=== PATIENT | female | born 1945 | race Caucasian/White ===

== ENCOUNTER → 2020-09-17 | Outpatient (CLI) | payer MEDICARE ==
--- NOTE | 2020-09-17 20:21 | CT ---
EXAMINATION TYPE: CT brain wo con DATE OF EXAM: 09/17/2020 COMPARISON: None HISTORY: 74-year-old female dizziness, CVA 6 months ago TECHNIQUE: Examination was done in axial plane without intravenous contrast. Coronal and sagittal r econstructions performed. CT DLP: 1017.9 mGycm Automated exposure control for dose reduction was used. FINDINGS: There is no evidence of acute intracranial hemorrhage, acute ischemic changes, mass, mass-effect, or extra-axial fluid collection. There is no effacement of cerebral sulci or basal subarachnoid cister ns. There is no hydrocephalus. There is no midline shift. Barbour-white matter distinction is preserv ed. Some layering fluid within the maxillary sinuses. Frothy fluid posterior ethmoid [facility] ight sphenoid sinus. Orbits and globes are intact. IMPRESSION: No acute intracranial abnormality seen. Correlate for acute sinusitis involving the bilateral maxilla ry sinuses, right ethmoid air cells, and right sphenoid sinus.
== END | disposition home or self-care (01) ==
LOC: RADCTMAIN 12:52
PROVIDERS: ATTEND Internal Medicine
DX: R42 Dizziness and giddiness (principal); Z86.73 Personal history of transient ischemic attack (TIA), and cerebral infarction without residual deficits
CPT/HCPCS: 70450

== ENCOUNTER → 2020-12-06 | Outpatient (CLI) | payer MEDICARE ==
--- NOTE | 2020-12-06 14:37 | BD ---
EXAMINATION TYPE: Axial Bone Density DATE OF EXAM: 12/06/2020 COMPARISON: NONE CLINICAL HISTORY: 75 YR OLD FEMALE.....ICD-10 CODE: Z78.0 POST MENOPAUSAL Height: 60.3 Weight: 170 FRAX RISK QUESTIONS: Glucocorticoids (More than 3mos): YES (Ex: prednisone, prednisolone, methylprednisolone, dexamethasone, and hydrocortisone). RISK FACTORS HISTORY OF: Postmenopausal woman: YES, AT ABOUT 54 YRS OLD Take estrogen and/or progesterone medications: YES, IN PAST FOR ABOUT 5 YRS Hyperparathyroidism: NO Adrenal Insufficiency: NO MEDICATIONS: Prednisone or other steroids: YES, FOR ASTHMA, FOR ABOUT 10 YRS Additional Medications: BP MEDS, REFLUX MEDS, STATIN FOR CHOLESTEROL, VIT D Additional History: HYPERTENSION, CHOLESTEROL AND REFLUX EXAM MEASUREMENTS: Bone mineral densitometry was performed using the (In)Touch Network System. Bone mineral density as measured about the Lumbar spine is: ----- L1-L4(G/cm2): 1.497 T Score Values are as follows: ----- L1: 1.9 ----- L2: 1.7 ----- L3: 2.3 ----- L4: 3.9 ----- L1-L4: 2.6 Bone mineral density FIRST DEXA STUDY AT [facility] Bone mineral density about the R hip (g/cm2): 1.169 Bone mineral density about the L hip (g/cm2): 1.092 T Score values are as follows: -----R Neck: -0.2 -----L Neck: -0.4 -----R Total: 1.3 -----L Total: 0.7 Bone mineral density FIRST BONE DENSITY AT [facility] FRAX%s: THERE IS A 12.1% CHANCE FOR A MAJOR OSTEOPOROTIC FX AND A 1.3% FOR HIP......PROBABILITY F OR FX IN 10 YRS TIME IMPRESSION: No evidence for osteoporosis or osteopenia. NOTE: T-SCORE=SD OF THE YOUNG ADULT MEAN.
--- NOTE | 2020-12-07 13:57 | MM ---
Reason for exam: screening (asymptomatic). History: Patient is postmenopausal and is nulliparous. Physical Findings: A clinical breast exam by your physician is recommended on an annual basis and results should be correlated with mammographic findings. MG 3D Screening Mammo W/Cad Bilateral CC and MLO view(s) were taken. No prior studies available for comparison. There are scattered fibroglandular densities. Bilateral nodularity in the outer aspects of the breast. These are suspected to represent intramammary lymph nodes. 6 month follow up recommended. ASSESSMENT: Probably benign, BI-RAD 3 RECOMMENDATION: Follow-up diagnostic mammogram of both breasts in 6 months.
== END | disposition home or self-care (01) ==
LOC: RADMAMWWP 12:38
PROVIDERS: ATTEND Internal Medicine
DX: Z12.31 Encounter for screening mammogram for malignant neoplasm of breast (principal); Z78.0 Asymptomatic menopausal state; Z79.52 Long term (current) use of systemic steroids; I10 Essential (primary) hypertension
CPT/HCPCS: 77063; 77067; 77080

== ENCOUNTER → 2021-06-08 | Outpatient (CLI) | payer MEDICARE ==
--- NOTE | 2021-06-08 13:56 | MM ---
Reason for exam: follow-up at short interval from prior study. Last mammogram was performed 6 months ago. History: Patient is postmenopausal and is nulliparous. Physical Findings: A clinical breast exam by your physician is recommended on an annual basis and results should be correlated with mammographic findings. MG 3D Diag Mammo W/Cad HERB Bilateral CC and MLO view(s) were taken. Prior study comparison: December 06, 2020, bilateral MG 3d screening mammo w/cad. The breast tissue is heterogeneously dense. This may lower the sensitivity of mammography. There are benign appearing round calcifications bilaterally. There is chronic nodularity bilaterally, stable, outer aspect. There is no discrete abnormality. Results were given to the patient verbally at the time of the exam. ASSESSMENT: Benign, BI-RAD 2 RECOMMENDATION: Routine screening mammogram of both breasts in 1 year.
== END | disposition home or self-care (01) ==
LOC: RADMAMWWP 12:58
PROVIDERS: ATTEND Internal Medicine
DX: R92.1 Mammographic calcification found on diagnostic imaging of breast (principal); Z78.0 Asymptomatic menopausal state
CPT/HCPCS: 77066; G0279; 77062

== ENCOUNTER → 2021-06-20 | Outpatient (CLI) | payer MEDICARE ==
[~2021-06-20] MED LIST: REGADENOSON 0.4 MG/5 ML SYRINGE IV PRN
--- NOTE | 2021-06-20 11:19 | CA ---
Lexiscan Nuclear Stress Test Report Name: Amanda Meade Exam Date: 06/20/2021 10:26 Exam Location: [facility] Ht (in): 63 Wt (lb): 174 BSA: 1.82 Ordering Phys: Andrés Corea MD Referring Phys: Corea Technologist: [place] Age: 75 Gender: F : 1945 Procedure CPT: Indications: R07.9 CHEST PAIN ICD-10 Codes: Patient History: Chest pain, Short of breath, Palpitations, hypertension, family history of heart disease, Medications: Losartan, Metroprolol, panterrazole, montelukast,Storvastatin, baby aspirin Meds past 24 hrs: Pretest Chest Pain: STRESS TEST Lexiscan Protocol Exercise Duration (min:sec): 02:[address] Depressions (mm): Angina Score: Gunn Score: Resting HR (bpm): 68 Peak HR (bpm): 93 Resting BP (mmHg): 170 / 97 Peak BP (mmHg): 204 / 93 MPHR: 146 Target HR: 124 % MPHR: 64 METS: 1.0 Total Dose: Peak Dose: Atropine: Double Product: 05187 BP Response: Stress Termination: Stress Symptoms: Chest pressure and shortness of breath Stress Summary: ECG ANALYSIS Resting ECG: Stress ECG: CONCLUSIONS Baseline EKG shows normal sinus rhythm normal axis normal intervals. Patient was given intravenous Lexiscan as a protocol. There was [address] segment depression noted in inferolateral leads. Abnormal stress test by EKG criteria Cardiolite portion of the stress test will be reported separately Dr. Feng Haynes MD (Electronically Signed) Final Date: 20 Jun 2021 11:18
--- NOTE | 2021-06-20 15:24 | NM ---
EXAMINATION TYPE: NM stress lexiscan cardiolite DATE OF EXAM: 06/20/2021 COMPARISON: NONE HISTORY: History of hypertension, prior stroke, family history of heart attack, asthma, and prior str chip presents with chest pain. TECHNIQUE: After the intravenous administration of 9.8 mCi Tc 99m Sestamibi - Cardiolite resting SPE CT images acquired 45 minutes post injection. The patient received 0.4mg Lexiscan, 25.5 mCi Tc 99m Sestamibi - Stress images obtained [address] injection FINDINGS: Review of stress and rest SPECT images demonstrates poor uptake involving the anterolateral left vent ricular wall on stress images which shows improved uptake on rest images particularly on the short ax is and horizontal long axis views suspicious for acute infarct. Gated analysis shows an estimated le ft ventricular ejection fraction of 69 %. IMPRESSION: Findings suspicious for acute infarct anterolateral left ventricular wall. Perfect serve messaging used at time of dictation to make ordering physician aware.
== END | disposition home or self-care (01) ==
LOC: RADNMMAIN 08:48
PROVIDERS: ATTEND Internal Medicine
DX: R07.9 Chest pain, unspecified (principal); I10 Essential (primary) hypertension; Z82.49 Family history of ischemic heart disease and other diseases of the circulatory system; Z86.73 Personal history of transient ischemic attack (TIA), and cerebral infarction without residual deficits
CPT/HCPCS: 93017; 78452; A9500; J2785

== ENCOUNTER → 2021-06-20 | Outpatient (CLI) | payer MEDICARE | END | disposition home or self-care (01) | LOC: LABWHC1 12:01 | PROVIDERS: ATTEND Nurse Practitioner | DX: Z53.9 Procedure and treatment not carried out, unspecified reason (principal) ==

== ENCOUNTER → 2021-06-23 | Day surgery (SDC) | payer MEDICARE ==
[2021-06-22 11:07] VITALS: BMI 30.2
[~2021-06-23] MED LIST changes: +ACETAMINOPHEN TAB 325 MG TAB ONE; +ALPRAZolam 0.25 MG TAB PO PRN; +ALPRAZolam 0.5 MG TAB PO PRN; +ASPIRIN 325 MG TAB PO ONE; +ATORVASTATIN 80 MG TAB PO ONE; +HEPARIN SODIUM 1,000 UN/ML (10ML VL) IV ONE; +HEPARIN SODIUM,PORCINE 10,000 UNIT in SODIUM CHLORIDE 0.9% 1,000 ML IRRIGATION PRN; +HEPARIN SODIUM,PORCINE 2,500 UNIT in SODIUM CHLORIDE 0.9% 250 ML IRRIGATION PRN; +IOPAMIDOL-370 125ML BTL INJ ONE; +LIDOCAINE 1% PF 10 MG/ML (5 ML AMP) SQ ONE; +MIDAZOLAM 2 MG/2 ML VIAL IV ONE; +NITROGLYCERIN SL TABS 0.4 MG TAB SUBLINGUAL PRN; -REGADENOSON 0.4 MG/5 ML SYRINGE IV PRN; +RX INFO: IV CONTRAST WAS GIVEN 1 EACH MISC MISCELLANE PRN; +SODIUM CHLORIDE 0.9% 1,000 ML IV SCH; +SODIUM CHLORIDE 0.9% 1,000 ML in EMPTY BAG 1 BAG IV SCH; +VERAPAMIL 2.5 MG/ML 2 ML AMP ONE; +VERAPAMIL SYRINGE (5 MG/10 ML) INTRAARTER ONE; +fentaNYL (PF) 50 MCG/ML 2 ML AMP IV ONE; +fentaNYL (PF) 50 MCG/ML 2 ML AMP ONE
[2021-06-23 09:19] VITALS: TEMP 97.6
[2021-06-23 09:41] LABS: Basophils # (A) 0.1 k/uL (0-0.2); Basophils % (A) 1 %; Eosinophils # (A) 0.3 k/uL (0-0.7); Eosinophils % (A) 4 %; HCT 36.9 % (34.0-46.0); HGB 12.1 gm/dL (11.4-16.0); Lymphocytes # (A) 1.6 k/uL (1.0-4.8); Lymphocytes % (A) 20 %; MCH 28.5 pg (25.0-35.0); MCHC 32.9 g/dL (31.0-37.0); MCV 86.8 fL (80.0-100.0); Monocytes # (A) 0.5 k/uL (0-1.0); Monocytes % (A) 7 %; Neutrophils # (A) 5.3 k/uL (1.3-7.7); Neutrophils % (A) 67 %; Platelet Count 281 k/uL (150-450); RBC 4.25 m/uL (3.80-5.40); RDW 13.9 % (11.5-15.5)
[2021-06-23 09:45] LABS: Calcium 9.1 mg/dL (8.4-10.2); Potassium 4.1 mmol/L (3.5-5.1)
--- NOTE | 2021-06-23 11:30 | CC ---
CARDIAC CATHETERIZATION REPORT INDICATION: Shortness of breath with abnormal stress test showing ischemia involving anterolateral wall with normal LV function. PROCEDURE NOTE: After obtaining informed consent, left heart catheterization and coronary angiogram were performed via the right radial artery using 3.5 sized right and left Jojo catheters. Left ventricular pressures were obtained using a right Jojo catheter. The patient tolerated the procedure well without any obvious immediate complications. This is moderate conscious sedation. Total sedation time was 20 minutes. The patient was given 5 mg of verapamil and 5000 units of intravenous heparin as per protocol. DESCRIPTION OF PROCEDURE: Using a micropuncture needle with the Seldinger technique, right radial artery access was obtained and under fluoroscopic guidance catheters and wires were manipulated into the ascending aorta where they were exchanged. The patient tolerated the procedure well without any obvious immediate complications. A TR band was applied as per protocol for hemostasis. FINDINGS: HEMODYNAMICS: Left ventricular end-diastolic pressure is 13 mm. There is no significant gradient across the aortic valve. LEFT VENTRICULOGRAM: Not performed. ANGIOGRAPHIC DATA: RIGHT CORONARY ARTERY: The right coronary artery appears calcified. It is totally occluded in its mid portion with right to right and [id number] collaterals to the distal RCA. LEFT MAIN CORONARY ARTERY is a normal-sized vessel and is free of stenosis. Divides into left anterior descending coronary artery and circumflex coronary artery. LEFT ANTERIOR DESCENDING CORONARY ARTERY: LAD appears calcified and shows mild atherosclerotic plaque in its mid portion. There is no significant stenosis noted. CIRCUMFLEX CORONARY ARTERY: Circumflex coronary artery and its branches are free of significant stenosis. It is unclear if the distal AV groove circ is totally occluded or it is the natural appearance of the distal circ. CONCLUSION: Chronic total occlusion of the right coronary artery with right to right and left-to- right collaterals to the right coronary artery. We will manage the patient with optimal medical therapy. She states that her shortness of breath has improved ever since I started her on . Continue the aspirin, beta blockers and statins that she is currently on and if she continues to have symptoms, consider angioplasty of the chronic totally occluded right coronary artery. MMODL / IJN: [id number] /
--- NOTE | 2021-06-23 11:30 | LTR ---
DATE OF SERVICE: 06/23/2021 Dear Andrés: I performed cardiac catheterization on Amanda Meade. A detailed catheterization note is enclosed for your records. In brief, the cardiac catheterization reveals a chronically occluded right coronary artery with right to right and [id number] collaterals. The plan at this stage is to treat her with optimal medical therapy and see how symptoms evolve and if necessary, consider angioplasty of the chronically occluded right coronary artery. Thank you for giving us the privilege to participate in this pleasant lady. Sincerely, PAULINA / IANN: [id number] /
[2021-06-23 11:36] VITALS: RESP 16
[2021-06-23 11:40] VITALS: BP 177/77; PULSE 69
== END ==
LOC: CATHCVL 08:55
PROVIDERS: ATTEND Internal Medicine Cardiovascular Disease
DX: I25.10 Atherosclerotic heart disease of native coronary artery without angina pectoris (principal); I25.82 Chronic total occlusion of coronary artery; I10 Essential (primary) hypertension; E78.2 Mixed hyperlipidemia; Z86.73 Personal history of transient ischemic attack (TIA), and cerebral infarction without residual deficits; Z79.82 Long term (current) use of aspirin; Z79.899 Other long term (current) drug therapy; Z82.49 Family history of ischemic heart disease and other diseases of the circulatory system
CPT/HCPCS: 93458; 80048; 85025; C1894; J2250; J2001; J3010; J1644; Q9967

== ENCOUNTER 2021-06-25 22:28 | Inpatient (IN) | payer MEDICARE ==
--- NOTE | 2021-06-26 00:41 | ED ---
Chest Pain HPI - General Chief Complaint: Chest Pain Stated Complaint: palpitations Time Seen by Provider: 06/25/21 23:45 Source: patient, EMS Mode of arrival: EMS Limitations: no limitations - History of Present Illness Initial Comments: This patient is a 75-year-old woman who presents to have evaluation for palpitations and chest pain. Patient states that approximately 9 PM tonight she was watching television when she noticed that all of a sudden her heart was beating rapidly, pounding in her chest. She states that there may have just been the mildest of chest pain associated area she did not have other associated symptoms, no dyspnea, diaphoresis, nausea or vomiting. No lightheadedness or syncope. Patient tried taking nitroglycerin for this without much change. When the heart rate continued to be elevated EMS was called. The patient states that she feels like all of the symptoms have resolved by now. She does feel a little fatigued but otherwise nearly back to normal. The patient states that she did have a nuclear medicine stress test last week and then this was followed by heart catheterization on . She was told the results were not showing acute obstruction. MD Complaint: chest pain, other -: hour(s) Pain Location: left chest Pain Radiation: none Severity: mild Quality: dull Consistency: now resolved Improves With: nothing Worsens With: nothing Treatments Prior to Arrival: nitroglycerin - Related Data Home Medications Medication Instructions Recorded Confirmed Albuterol Inhaler [Ventolin Hfa 2 puff INHALATION RT-QID PRN 06/22/21 06/26/21 Inhaler] Aspirin 81 mg PO DAILY 06/22/21 06/26/21 Atorvastatin [Lipitor] 40 mg PO DAILY 06/22/21 06/26/21 Losartan Potassium [Cozaar] 50 mg PO BID 06/22/21 06/26/21 Metoprolol Tartrate [Lopressor] 75 mg PO BID 06/22/21 06/26/21 Montelukast [Singulair] 10 mg PO HS 06/22/21 06/26/21 Pantoprazole [Protonix] 40 mg PO DAILY 06/22/21 06/26/21 Previous Rx's Medication Instructions Recorded Isosorbide Mononitrate ER [Imdur] 30 mg PO DAILY #90 tab 06/20/21 Nitroglycerin Sl Tabs [Nitrostat] 0.4 mg SUBLINGUAL Q5M PRN #100 tab 06/20/21 Clopidogrel [Plavix] 75 mg PO DAILY 30 Days #30 tab 06/29/21 amLODIPine [Norvasc] 10 mg PO DAILY 30 Days #30 tab 06/29/21 Allergies Allergy/AdvReac Type Severity Reaction Status Date / Time No Known Allergies Allergy Verified 06/26/21 12:45 Review of Systems ROS Statement: Those systems with pertinent positive or pertinent negative responses have been documented in the HPI. ROS Other: All systems not noted in ROS Statement are negative. Constitutional: Denies: fever, chills, weakness Respiratory: Denies: cough, dyspnea Cardiovascular: Reports: as per HPI, chest pain, palpitations. Denies: orthopnea, edema, syncope Gastrointestinal: Denies: abdominal pain, nausea, vomiting, diarrhea Genitourinary: Denies: dysuria, hematuria Musculoskeletal: Denies: back pain Skin: Denies: rash Neurological: Denies: headache, weakness Psychiatric: Reports: anxiety EKG Findings - EKG Results: EKG: interpreted by ERMD, normal axis, normal QRS EKG shows: tachycardia (Rate 113 bpm) - Blocks, [place], Hypertrophy, ST Abn: Repolarization changes or abnormalities: ST or T wave suggestive of ischemia (Possible lateral ischemia.) Past Medical History Past Medical History: Asthma, Chest Pain / Angina, CVA/TIA, GERD/Reflux, Hyperlipidemia, Hypertension Additional Past Medical History / Comment(s): recent stress test, SOB w/exertion for about a month, fatigue, severe stroke Mar. 2020-went to rehab after to learn to walk again but good now History of Any Multi-Drug Resistant Organisms: None Reported Additional Past Surgical History / Comment(s): D & C's Past Anesthesia/Blood Transfusion Reactions: No Reported Reaction Past Psychological History: Anxiety Smoking Status: Never smoker - Past Family History Brother(s) Family Medical History: Coronary Artery Disease (CAD), Myocardial Infarction ( CT) General Exam Limitations: no limitations General appearance: alert, in no apparent distress Head exam: Present: atraumatic, normocephalic Eye exam: Present: normal appearance. Absent: scleral icterus, conjunctival injection Neck exam: Present: normal inspection Respiratory exam: Present: normal lung sounds bilaterally. Absent: respiratory distress, wheezes, rales, rhonchi, stridor Cardiovascular Exam: Present: regular rate, normal rhythm, normal heart sounds. Absent: systolic murmur, diastolic murmur, rubs, gallop GI/Abdominal exam: Present: soft. Absent: distended, tenderness, guarding, rebound, rigid, mass Extremities exam: Present: normal inspection, normal capillary refill. Absent: pedal edema, calf tenderness Back exam: Present: normal inspection. Absent: CVA tenderness (R), CVA tenderness (L) Neurological exam: Present: alert Skin exam: Present: warm, dry, intact, normal color. Absent: rash Course Vital Signs 06/25/21 06/25/21 06/26/21 22:52 23:59 01:36 Temperature 98.1 F Pulse Rate 111 H 75 72 Pulse Rate [ Pulse Oximetery ] Respiratory 20 18 18 Rate Blood Pressure 201/105 164/89 174/99 Blood Pressure [Right Arm] O2 Sat by Pulse 98 97 95 Oximetry 06/26/21 06/26/21 06/26/21 02:33 03:34 04:00 Temperature 98.2 F Pulse Rate 75 73 Pulse Rate [ 75 Pulse Oximetery ] Respiratory 18 16 18 Rate Blood Pressure 191/86 166/76 Blood Pressure 203/86 [Right Arm] O2 Sat by Pulse 95 95 94 L Oximetry Disposition Clinical Impression: NSTEMI (non-ST elevated myocardial infarction), Chest pain Disposition: ADMITTED IP TO THIS HOSP Condition: Fair Is patient prescribed a controlled substance at d/c from ED?: No
[2021-06-26 00:46] LABS: Basophils # (A) 0.1 k/uL (0-0.2); Basophils % (A) 1 %; Eosinophils # (A) 0.4 k/uL (0-0.7); Eosinophils % (A) 4 %; HCT 35.7 % (34.0-46.0); HGB 11.6 gm/dL (11.4-16.0); Lymphocytes # (A) 1.7 k/uL (1.0-4.8); Lymphocytes % (A) 18 %; MCH 28.5 pg (25.0-35.0); MCHC 32.6 g/dL (31.0-37.0); MCV 87.5 fL (80.0-100.0); Mean Platelet Volume 8.4; Monocytes # (A) 0.7 k/uL (0-1.0); Monocytes % (A) 7 %; Neutrophils # (A) 6.5 k/uL (1.3-7.7); Neutrophils % (A) 69 %; Platelet Count 243 k/uL (150-450); RBC 4.08 m/uL (3.80-5.40); RDW 13.8 % (11.5-15.5); WBC 9.5 k/uL (3.8-10.6)
[2021-06-26 01:03] LABS: Albumin 3.6 g/dL (3.5-5.0); Calcium 8.7 mg/dL (8.4-10.2); Magnesium 1.8 mg/dL (1.6-2.3); Total Bilirubin 0.6 mg/dL (0.2-1.3); Total Protein 6.4 g/dL (6.3-8.2)
--- NOTE | 2021-06-26 01:14 | XR ---
EXAMINATION TYPE: XR chest 1V portable DATE OF EXAM: 06/26/2021 COMPARISON: NONE HISTORY: Palpitations TECHNIQUE: Single view FINDINGS: Single view Heart is normal. Lungs are clear of infiltrate. There are no hilar masses. There is no pleural effusi on. There are chest leads. IMPRESSION: No active cardiopulmonary disease.
[2021-06-26 01:23] LABS: INR 0.9 (<1.2); Prothrombin Time 10.4 sec (9.0-12.0)
[2021-06-26 01:46] LABS: Partial Thromboplastin Time 21.8 sec (22.0-30.0)
[2021-06-26] MEDS ORDERED: NITROGLYCERIN SL TABS 0.4 MG TAB SUBLINGUAL PRN (02:48)
[2021-06-26] MEDS ORDERED: MORPHINE SULFATE 2 MG/ML SYRINGE IVP PRN (02:48)
--- NOTE | 2021-06-26 03:48 | P.HPIM ---
History of Present Illness H&P Date: 06/26/21 Chief Complaint: palpitations 75 year old female with CAD, hypertension patient presented by EMS when she experienced palpitations and chest discomfort that happened suddenly while she was resting and getting ready to go to sleep. she recently had a left heart cath that showed total occlusion of coronary arteries no stents were deployed and recommendations were to optimize medical treatment . she denies any history of afib or heart racing. she drinks one coke a day for a caffeine source. no recent changes inher meds, and claims she is compliant with her meds currently she feels comfortable no ongoing chest discomfort or palpitations at this time blood work showed slightly elevated trops otherwise unremarkable Review of Systems Pertinent positives as noted in HPI. All other systems were reviewed and are negative Past Medical History Past Medical History: Asthma, Chest Pain / Angina, CVA/TIA, GERD/Reflux, Hyperlipidemia, Hypertension Additional Past Medical History / Comment(s): recent stress test, SOB w/exertion for about a month, fatigue, severe stroke Fe. 2020-went to rehab after to learn to walk again but good now History of Any Multi-Drug Resistant Organisms: None Reported Additional Past Surgical History / Comment(s): D & C's Past Anesthesia/Blood Transfusion Reactions: No Reported Reaction Past Psychological History: Anxiety Smoking Status: Never smoker - Past Family History Brother(s) Family Medical History: Coronary Artery Disease (CAD), Myocardial Infarction (ME) Medications and Allergies Home Medications Medication Instructions Recorded Confirmed Type Isosorbide Mononitrate ER [Imdur] 30 mg PO DAILY #90 tab 06/20/21 06/23/21 Rx Nitroglycerin Sl Tabs [Nitrostat] 0.4 mg SUBLINGUAL Q5M PRN #100 tab 06/20/21 06/23/21 Rx Albuterol Inhaler [Ventolin Hfa 2 puff INHALATION RT-QID PRN 06/22/21 06/23/21 History Inhaler] Aspirin 81 mg PO DAILY 06/22/21 06/23/21 History Atorvastatin [Lipitor] 40 mg PO DAILY 06/22/21 06/23/21 History Losartan Potassium [Cozaar] 50 mg PO BID 06/22/21 06/23/21 History Metoprolol Tartrate [Lopressor] 75 mg PO BID 05/11/22 05/12/22 History Montelukast [Singulair] 10 mg PO HS 06/22/21 06/23/21 History Pantoprazole [Protonix] 40 mg PO DAILY 06/22/21 06/23/21 History Allergies Allergy/AdvReac Type Severity Reaction Status Date / Time No Known Allergies Allergy Unverified 06/23/21 09:07 Physical Exam Vitals: Vital Signs Temp Pulse Resp BP Pulse Ox 06/26/21 02:33 75 18 191/86 95 06/26/21 01:36 72 18 174/99 95 06/25/21 23:59 75 18 164/89 97 06/25/21 22:52 98.1 F 111 H 20 201/105 98 Intake and Output 06/25/21 06/25/21 06/26/21 14:59 22:59 06:59 Other: Weight 78.471 kg Constitutional: No acute distress, conversant, pleasant Eyes: Anicteric sclerae, moist conjunctiva, Pupils equal round reactive to light ENMT: NC/AT Oropharynx clear, no erythema, or exudates Neck: Supple, FROM, no masses, or JVD No carotid bruits No thyromegaly Lungs: Clear to auscultation Clear to percussion Normal respiratory effort, no accessory muscle use Cardiovascular: Heart regular in rate and rhythm, No murmurs, gallops, or rubs No peripheral edema Abdominal: Soft Nontender, no guarding, rebound or rigidity Abdomen moving with respiration Normoactive bowel sounds No hepatomegaly, No splenomegaly No palpable mass No abdominal wall hernia noted Skin: Normal temperature, tone, texture, turgor No induration No subcutaneous nodules No rash, lesions No ulcers Extremities: No digital cyanosis No clubbing Pedal pulses intact and symmetrical Radial pulses intact and symmetrical No calf tenderness Psychiatric: Alert and oriented to person, place and time Appropriate affect fair judgement Neuro Muscles Strength 4/5 in all 4 extremities Sensation to light touch grossly present throughout Cranial nerves II-XII grossly intact No focal sensory deficits Lymphatics: no palpable cervical or supraclavicular , or inguinal lymph nodes Results CBC & Chem 7: 06/26/21 00:37 06/26/21 00:37 Labs: Abnormal Lab Results - Last 24 Hours (Table) 06/26/21 06/26/21 06/26/21 Range/Units 00:37 00:37 00:37 APTT 21.8 L (22.0-30.0) sec Chloride 108 H (98-107) mmol/L BUN 21 H (7-17) mg/dL Glucose 113 H (74-99) mg/dL Troponin I 0.044 H* (0.000-0.034) ng/mL Assessment and Plan Assessment: atypical chest pain , palpitations recent left heart cath with RCA total occlusion and patent collaterals , no stenosis in circumflex or left main or left main, mild disease LAD trend trops cardiac monito resume cardiac meds cardiology consult ASA, statin slightly elevated trops possibly 2/2 demand ischemia secondary to earlier tachycardia chronic conditions hypertension hyperlipidemia resume home meds full code DVT PPX hepairn sc tid anticipated length of stay < 2 midnights
[2021-06-26] MEDS: METOPROLOL TARTRATE 25 MG TAB PO SCH ×2 (04:17→20:49)
[2021-06-26] MEDS: LOSARTAN 50 MG TAB PO SCH ×2 (04:17→20:49)
[2021-06-26] MEDS ORDERED: HEPARIN SODIUM,PORCINE/PF 5,000 UNIT/0.5 ML SYRINGE SQ SCH (08:00)
[2021-06-26] MEDS: PANTOPRAZOLE 40 MG TABLET PO SCH (08:29)
[2021-06-26] MEDS: ATORVASTATIN 40 MG TAB PO SCH (08:29)
--- NOTE | 2021-06-26 14:23 | P.PN ---
Subjective Progress Note Date: 06/26/21 Principal diagnosis: Palpitations Patient was seen and examined. No acute events overnight. Patient reports complete resolution of her symptoms. No more palpitations. No more chest pain. Feels at baseline. General: [non toxic], [no distress], [appears at stated age] Derm: [warm], [dry] Head: [atraumatic], [normocephalic], [symmetric] Eyes: [EOMI], [no lid lag], [anicteric sclera] Mouth: [no lip lesion], [mucus membranes moist] Cardiovascular: [S1S2 reg], [no murmur], [positive DP pulse bilateral] Lungs: [CTA bilateral], [no rhonchi, no rales] , [no accessory muscle use] Abdominal: [soft], [ nontender to palpation], [no guarding], [no appreciable organomegaly] Ext: [no gross muscle atrophy], [no edema], [no contractures] Neuro: [no focal neuro deficits] Psych: [Alert], [oriented], [appropriate affect] Assessment and Plan #Elevated troponins with atypical chest pain with history of CAD #Palpitations #Elevated BUN #Obesity Chronic conditions: Hypertension, dyslipidemia, GERD Patient troponins were trended at 0.044, 0.147, 0.201 with EKG showing sinus tachycardia. Recent cardiac cath done in 06/2021 shows chronic total occlusion of the RCA with collaterals. Stress done in 06/2021 shows EF of 69%. Troponin will be repeated tomorrow morning. Echocardiogram has been ordered. Telemetry monitoring will be ordered. Cardiology has been consulted for further management of this patient. TSH will be ordered with regard to her palpitations. Patient has been encouraged hydration by mouth. BMP will be repeated tomorrow morning. Patient would benefit from a structured weight loss program. DVT prophylaxis: [Heparin] Discussed with: [Patient] Anticipated discharge: [1-2 days] Anticipated discharge place: [Home] A total of [25] minutes was spent on the care of this complex patient more than 50% of the time was spent in counseling and care coordination. Plans for Echocardiogram and repeat Troponin. Unfortunately, Echo is not available today. Anticipate DC home tomorrow. Objective - Vital Signs Vital signs: Vital Signs Temp 98.3 F 06/26/21 11:48 Pulse 71 06/26/21 11:48 Resp 20 06/26/21 11:48 BP 189/86 06/26/21 11:48 Pulse Ox 90 L 06/26/21 11:48 Intake & Output 06/25/21 06/26/21 06/26/21 18:59 06:59 18:59 Intake Total 485 Output Total 300 Balance 185 Weight 78.471 kg Intake: Oral 485 Output: Urine 300 Other: Voiding Method Toilet - Labs CBC & Chem 7: 06/26/21 00:37 06/26/21 00:37 Labs: Abnormal Lab Results - Last 24 Hours (Table) 06/26/21 06/26/21 06/26/21 Range/Units 00:37 00:37 00:37 APTT 21.8 L (22.0-30.0) sec Chloride 108 H (98-107) mmol/L BUN 21 H (7-17) mg/dL Glucose 113 H (74-99) mg/dL Troponin I 0.044 H* (0.000-0.034) ng/mL 06/26/21 06/26/21 Range/Units 03:11 06:27 APTT (22.0-30.0) sec Chloride (98-107) mmol/L BUN (7-17) mg/dL Glucose (74-99) mg/dL Troponin I 0.147 H* 0.201 H* (0.000-0.034) ng/mL
[2021-06-26] MEDS ORDERED: HEPARIN SODIUM 1,000 UN/ML (10ML VL) IV PRN (15:10)
[2021-06-26] MEDS ORDERED: HEPARIN SODIUM 1,000 UN/ML (10ML VL) IV ONE (15:10)
--- NOTE | 2021-06-26 15:26 | P.CRDCN ---
History of Present Illness History of present illness: HISTORY OF PRESENTING ILLNESS Patient is pleasant 75-year-old female with history of family history CAD, hypertension, asthma, GERD, hyperlipidemia, CAD with CT of the RCA who presents secondary to chest pain. Patient follows with Dr. Haynes. She has had recent workup with a Lexiscan stress test showing anterolateral ischemia and therefore heart catheterization was performed which showed a CT of the RCA with [id number] collaterals without any significant LAD disease. She therefore was attempted to be treated medically. She admits her blood pressure has been more elevated the last few weeks. Normally in the 140s to 150s however has been up in the 180s. She states she started feeling chest pressure sensation and like her heart was beating out of her chest. She denies any actual palpitations or lightheadedness. Episode lasted for 15-20 minutes and she take nitroglycerin and called EMS. By the time EMS resented she is feeling somewhat better. On presentation blood pressure noted to be very elevated 201/105. She admits she was previously on a diuretic however felt to cause some kidney damage and therefore this was discontinued. Since being in the hospital she denies any further chest pain or pressure. EKG shows normal sinus rhythm, normal axis, ST depressions in the lateral and inferior leads. Troponin 0.04, 0.14, 0.2. Heart catheterization 06/23/2021 showed 100% sure RCA LICENSED PSYCHIATRIC TECHNICIAN with [id number] collaterals, mild disease of the LAD and circumflex with what appears to be a distal AV groove circumflex subtotal occlusion of a small vessel. Therefore she was treated medically. REVIEW OF SYSTEMS At the time of my exam: CONSTITUTIONAL: Denies fever or chills. CARDIOVASCULAR: +chest pain, +shortness of breath, no orthopnea, PND or palpitations. RESPIRATORY: Denies cough. GASTROINTESTINAL: Denies abdominal pain, diarrhea, constipation, nausea or vomiting. MUSCULOSKELETAL: Denies myalgias. NEUROLOGIC: Denies numbness, tingling or weakness. ENDOCRINE: Denies fatigue, weight change, polydipsia or polyurina. GENITOURINARY: Denies burning, hematuria or urgency with micturation. HEMATOLOGIC: Denies history of anemia or bleeding. PHYSICAL EXAMINATION Vital signs reviewed. CONSTITUTIONAL: No apparent distress. HEENT: Head is normocephalic. Pupils are equal, round. Sclerae anicteric. Mucous membranes of the mouth are moist. No JVD. No carotid bruit. CHEST EXAMINATION: Lungs are clear to auscultation. No chest wall tenderness is noted on palpation or with deep breathing. HEART EXAMINATION: Regular rate and rhythm. S1, S2 heard. No murmurs, gallops or rub. ABDOMEN: Soft, nontender. Positive bowel sounds. EXTREMITIES: 2+ peripheral pulses, no lower extremity edema and no calf tenderness. NEUROLOGIC EXAMINATION: Patient is awake, alert and oriented x3. ASSESSMENT 1. Non-STEMI may be type II mechanism from uncontrolled hypertension or po ssible arrhythmia that resolved by time EMS arrived however chest pain improving with nitro. 2. Coronary artery disease with 100% RCA stenosis and subtotal occluded distal AV circumflex 3. Hypertension uncontrolled 4. Hyperlipidemia 5. Chronic kidney disease PLAN Patient with 15-20 minutes of chest pain and feeling her heart "beating hard "in her chest. This may correlate with an arrhythmia however more concerning for angina with elevated troponins with a rise in troponins. She does have RCA LICENSED PSYCHIATRIC TECHNICIAN and discussed given symptoms as well as abnormal troponins would recommend intervention. Patient would like to think about it. Continue heparin drip for 24 hours. If patient willing proceed with repeat heart catheterization and LICENSED PSYCHIATRIC TECHNICIAN procedure of RCA. Add amlodipine for better blood pressure control. If still inadequate likely add diuretic for improved blood pressure control. Past Medical History Past Medical History: Asthma, Chest Pain / Angina, CVA/TIA, GERD/Reflux, Hyperlipidemia, Hypertension Additional Past Medical History / Comment(s): recent stress test and cath, SOB w/exertion for about a month, fatigue, severe stroke 2020-went to rehab after to learn to walk again but good now History of Any Multi-Drug Resistant Organisms: None Reported Additional Past Surgical History / Comment(s): D & C's Past Anesthesia/Blood Transfusion Reactions: No Reported Reaction Past Psychological History: Anxiety Additional Psychological History / Comment(s): related to procedure Smoking Status: Never smoker Past Alcohol Use History: Occasional Past Drug Use History: None Reported - Past Family History Brother(s) Family Medical History: Coronary Artery Disease (CAD), Myocardial Infarction ([place]) Medications and Allergies Home Medications Medication Instructions Recorded Confirmed Type Isosorbide Mononitrate ER [Imdur] 30 mg PO DAILY #90 tab 06/20/21 06/26/21 Rx Nitroglycerin Sl Tabs [Nitrostat] 0.4 mg SUBLINGUAL Q5M PRN #100 tab 06/20/21 06/26/21 Rx Albuterol Inhaler [Ventolin Hfa 2 puff INHALATION RT-QID PRN 06/22/21 06/26/21 History Inhaler] Aspirin 81 mg PO DAILY 06/22/21 06/26/21 History Atorvastatin [Lipitor] 40 mg PO DAILY 06/22/21 06/26/21 History Losartan Potassium [Cozaar] 50 mg PO BID 06/22/21 06/26/21 History Metoprolol Tartrate [Lopressor] 75 mg PO BID 06/22/21 06/26/21 History Montelukast [Singulair] 10 mg PO HS 06/22/21 06/26/21 History Pantoprazole [Protonix] 40 mg PO DAILY 06/22/21 06/26/21 History Allergies Allergy/AdvReac Type Severity Reaction Status Date / Time No Known Allergies Allergy Verified 06/26/21 12:45 Physical Exam Vitals: Vital Signs Temp Pulse Pulse Resp BP BP Pulse Ox 06/26/21 11:48 98.3 F 71 20 189/86 90 L 06/26/21 08:00 98.1 F 74 20 193/80 94 L 06/26/21 04:00 98.2 F 75 18 203/86 94 L 06/26/21 03:34 73 16 166/76 95 06/26/21 02:33 75 18 191/86 95 06/26/21 01:36 72 18 174/99 95 06/25/21 23:59 75 18 164/89 97 06/25/21 22:52 98.1 F 111 H 20 201/105 98 Intake and Output 06/26/21 06/26/21 06/26/21 06:59 14:59 22:59 Intake Total 485 Output Total 300 Balance 185 Intake: Oral 485 Output: Urine 300 Other: Voiding Method Toilet Weight 78.471 kg Results 06/26/21 00:37 06/26/21 00:37 Cardiac Enzymes 06/26/21 06/26/21 06/26/21 Range/Units 00:37 00:37 03:11 AST 22 (14-36) U/L Troponin I 0.044 H* 0.147 H* (0.000-0.034) ng/mL 06/26/21 Range/Units 06:27 AST (14-36) U/L Troponin I 0.201 H* (0.000-0.034) ng/mL Coagulation 06/26/21 Range/Units 00:37 PT 10.4 (9.0-12.0) sec APTT 21.8 L (22.0-30.0) sec CBC 06/26/21 Range/Units 00:37 WBC 9.5 (3.8-10.6) k/uL RBC 4.08 (3.80-5.40) m/uL Hgb 11.6 (11.4-16.0) gm/dL Hct 35.7 (34.0-46.0) % Plt Count 243 (150-450) k/uL Comprehensive Metabolic Panel 06/26/21 Range/Units 00:37 Sodium 139 (137-145) mmol/L Potassium 4.0 (3.5-5.1) mmol/L Chloride 108 H (98-107) mmol/L Carbon Dioxide 23 (22-30) mmol/L BUN 21 H (7-17) mg/dL Creatinine 0.91 (0.52-1.04) mg/dL Glucose 113 H (74-99) mg/dL Calcium 8.7 (8.4-10.2) mg/dL AST 22 (14-36) U/L ALT 16 (4-34) U/L Alkaline Phosphatase 77 (38-126) U/L Total Protein 6.4 (6.3-8.2) g/dL Albumin 3.6 (3.5-5.0) g/dL Current Medications Generic Name Dose Route Start Last Admin Trade Name Freq PRN Reason Stop Dose Admin Amlodipine Besylate 10 mg 06/26/21 15:15 Amlodipine 10 Mg Tab PO DAILY [facility] Aspirin 325 mg 06/27/21 09:00 Aspirin 325 Mg Tab PO DAILY [facility] Atorvastatin Calcium 40 mg 06/26/21 09:00 06/26/21 08:29 Atorvastatin 40 Mg Tab PO 40 mg DAILY [facility] Administration Heparin Sodium (Porcine) 0 unit 06/26/21 15:10 Heparin Sodium 1,000 Un/Ml (10ml Vl) IV PER PROTOCOL PRN Low PTT Protocol Heparin Sodium/Sodium Chloride 250 mls @ 14.125 mls/hr 06/26/21 15:15 25,000 unit/ Sodium Chloride IV .[id number] [facility] Protocol 18 UNITS/KG/HR Losartan Potassium 50 mg 06/26/21 09:00 06/26/21 04:17 Losartan 50 Mg Tab PO 50 mg BID [facility] Administration Metoprolol Tartrate 75 mg 06/26/21 09:00 06/26/21 04:17 Metoprolol Tartrate 25 Mg Tab PO 75 mg BID [place] Administration Montelukast Sodium 10 mg 06/26/21 21:00 Montelukast 10 Mg Tab PO HS [facility] Morphine Sulfate 2 mg 06/26/21 02:48 Morphine Sulfate 2 Mg/Ml Syringe IVP Q5M PRN Chest Pain Nitroglycerin 0.4 mg 06/26/21 02:48 Nitroglycerin Sl Tabs 0.4 Mg Tab SUBLINGUAL Q5M PRN Chest Pain Pantoprazole Sodium 40 mg 06/26/21 09:00 06/26/21 08:29 Pantoprazole 40 Mg Tablet PO 40 mg DAILY [facility] Administration Intake and Output 06/26/21 06/26/21 06/26/21 06:59 14:59 22:59 Intake Total 485 Output Total 300 Balance 185 Intake: Oral 485 Output: Urine 300 Other: Voiding Method Toilet Weight 78.471 kg 06/26/21 00:37 06/26/21 00:37
[2021-06-26 15:59] LABS: Basophils # (A) 0.1 k/uL (0-0.2); Basophils % (A) 1 %; Eosinophils # (A) 0.3 k/uL (0-0.7); Eosinophils % (A) 4 %; HCT 38.7 % (34.0-46.0); HGB 12.5 gm/dL (11.4-16.0); Lymphocytes # (A) 1.6 k/uL (1.0-4.8); Lymphocytes % (A) 19 %; MCH 28.6 pg (25.0-35.0); MCHC 32.3 g/dL (31.0-37.0); MCV 88.4 fL (80.0-100.0); Mean Platelet Volume 8.2; Monocytes # (A) 0.5 k/uL (0-1.0); Monocytes % (A) 6 %; Neutrophils # (A) 5.6 k/uL (1.3-7.7); Neutrophils % (A) 68 %; Platelet Count 266 k/uL (150-450); RBC 4.38 m/uL (3.80-5.40); RDW 14.2 % (11.5-15.5); WBC 8.2 k/uL (3.8-10.6)
[2021-06-26 16:08] LABS: Partial Thromboplastin Time 22.3 sec (22.0-30.0); Prothrombin Time 10.6 sec (9.0-12.0)
[2021-06-26] MEDS: HEPARIN SOD,PORK IN 0.45% NACL 25,000 UNIT in 0.45% NACL 1 250ML.BAG IV SCH (16:20)
[2021-06-26] MEDS: amLODIPine 10 MG TAB PO SCH (17:01)
[2021-06-26] MEDS: MONTELUKAST 10 MG TAB PO SCH (20:49)
[2021-06-27 06:32] LABS: Basophils # (A) 0.1 k/uL (0-0.2); Basophils % (A) 1 %; Eosinophils # (A) 0.3 k/uL (0-0.7); Eosinophils % (A) 4 %; HGB 12.3 gm/dL (11.4-16.0); Lymphocytes # (A) 2.1 k/uL (1.0-4.8); Lymphocytes % (A) 27 %; MCH 28.6 pg (25.0-35.0); MCHC 31.5 g/dL (31.0-37.0); MCV 90.5 fL (80.0-100.0); Mean Platelet Volume 7.9; Monocytes # (A) 0.4 k/uL (0-1.0); Monocytes % (A) 5 %; Neutrophils # (A) 4.6 k/uL (1.3-7.7); Neutrophils % (A) 60 %; Platelet Count 258 k/uL (150-450); RBC 4.31 m/uL (3.80-5.40); RDW 14.3 % (11.5-15.5); WBC 7.7 k/uL (3.8-10.6)
[2021-06-27 06:50] LABS: African American GFR (CKD) 78 (>60 ml/min/1.73 sqM); Anion Gap 10 mmol/L; Blood Urea Nitrogen 14 mg/dL (7-17); Calcium 8.7 mg/dL (8.4-10.2); Carbon Dioxide 22 mmol/L (22-30); Chloride 107 mmol/L (98-107); Glucose 107 mg/dL (74-99); Non-African American GFR(CKD) 68 (>60 ml/min/1.73 sqM); Potassium 3.6 mmol/L (3.5-5.1); Sodium 139 mmol/L (137-145)
[2021-06-27] MEDS ORDERED: ASPIRIN 325 MG TAB PO SCH (09:00)
[2021-06-27] MEDS: HEPARIN SOD,PORK IN 0.45% NACL 25,000 UNIT in 0.45% NACL 1 250ML.BAG IV SCH ×2 (09:06→16:53)
[2021-06-27] MEDS: PANTOPRAZOLE 40 MG TABLET PO SCH (09:07)
[2021-06-27] MEDS: ATORVASTATIN 40 MG TAB PO SCH (09:07)
[2021-06-27] MEDS: LOSARTAN 50 MG TAB PO SCH ×2 (09:07→21:03)
[2021-06-27] MEDS: METOPROLOL TARTRATE 25 MG TAB PO SCH ×2 (09:07→21:03)
[2021-06-27] MEDS: amLODIPine 10 MG TAB PO SCH (09:07)
--- NOTE | 2021-06-27 10:37 | CA ---
Transthoracic Echo Report Name: Amanda Meade Age: 75 Gender: F : 1945 Exam Date: 06/27/2021 08:15 Exam Location: [facility] Ht (in): 63 Wt (lb): 173 Ordering Physician: Criselda Franklin MD Attending/Referring Phys: Dandy Operator Nati Davis RDCS Procedure CPT: Indications: elevated trop Cardiac Hx: Technical Quality: Fair Contrast 1: Total Dose (mL): Contrast 2: Total Dose (mL): MEASUREMENTS (Male / Female) Normal Values 2D ECHO LV Diastolic Diameter PLAX 3.6 cm 4.2 - 5.9 / 3.9 - 5.3 cm LV Systolic Diameter PLAX 2.2 cm IVS Diastolic Thickness 1.2 cm 0.6 - 1.0 / 0.6 - 0.9 cm LVPW Diastolic Thickness 1.0 cm 0.6 - 1.0 / 0.6 - 0.9 cm LV Relative Wall Thickness 0.6 RV Internal Dim ED PLAX 2.8 cm LA Systolic Diameter LX 3.2 cm 3.0 - 4.0 / 2.7 - 3.8 cm LA Volume 45.3 cm??? 18 - 58 / 22 - 52 cm??? M-MODE Aortic Root Diameter MM 2.3 cm MV E Point Septal Separation 0.4 cm AV Cusp Separation MM 1.3 cm DOPPLER AV Peak Velocity 172.2 cm/s AV Peak Gradient 11.9 mmHg AI Peak Velocity 388.6 cm/s AI Peak Gradient 60.4 mmHg AI Pressure Half Time 1082.8 ms MV Area PHT 3.1 cm??? Mitral E Point Velocity 107.9 cm/s Mitral A Point Velocity 138.6 cm/s Mitral E to A Ratio 0.8 MV Deceleration Time 246.0 ms MV E' Velocity 3.7 cm/s Mitral E to MV E' Ratio 29.1 TR Peak Velocity 258.7 cm/s TR Peak Gradient 26.8 mmHg Right Ventricular Systolic Press 31.8 mmHg FINDINGS Left Ventricle Left ventricular ejection fraction is estimated at 60-65%. Left ventricular cavity size normal. Mild concentric left ventricular hypertrophy. Right Ventricle Normal right ventricular size and function. Right ventricular systolic pressure within normal limits. Right Atrium Normal right atrial size. Left Atrium Normal left atrial size. No evidence for an atrial septal defect. Mitral Valve Trace to mild mitral regurgitation. Aortic Valve No aortic valve stenosis or regurgitation. Tricuspid Valve Mild tricuspid regurgitation. Pulmonic Valve No pulmonic regurgitation. Pericardium No pericardial effusion. Aorta Normal size aortic root and proximal ascending aorta. CONCLUSIONS Normal left ventricular dimension and systolic function See above for details Previewed by: Dr. Martell Sandhu MD (Electronically Signed) Final Date: 27 Jun 2021 10:36
[2021-06-27 11:03] LABS: Chol/HDL Ratio 2.64 Ratio; LDL Cholesterol,Calculated 57.5 mg/dL (0.0-131.0); VLDL Calculation 19.46 mg/dL (5.00-40.00)
--- NOTE | 2021-06-27 12:16 | P.PN ---
Subjective She was examined at bedside today not complaining of new symptomatology. Denies any sharp chest pain, shortness of breath or palpitations. States this is improved since day of admission. Objective - Vital Signs Vital signs: Vital Signs Temp 98.7 F 06/27/21 08:00 Pulse 70 06/27/21 08:00 Resp 16 06/27/21 08:00 BP 146/82 06/27/21 08:00 Pulse Ox 96 06/27/21 08:00 Intake & Output 06/26/21 06/27/21 06/27/21 18:59 06:59 18:59 Intake Total 182.631 74.522 Output Total 400 Balance -217.369 74.522 Intake: Intake, IV Titration 82.631 74.522 Amount Heparin Sod,Pork in 0.45% 82.631 74.522 NaCl 25,000 unit In 0.45 % NaCl 1 250ml.bag @ 18 UNITS/KG/HR 14.125 mls/hr IV .[id number] [facility] Rx#: [id number] Oral 100 Output: Urine 400 Other: Voiding Method Toilet # Voids 2 1 1 # Bowel Movements 1 - Exam General: [non toxic], [no distress], [appears at stated age] Derm: [warm], [dry] Head: [atraumatic], [normocephalic], [symmetric] Eyes: [EOMI], [no lid lag], [anicteric sclera] Mouth: [no lip lesion], [mucus membranes moist] Cardiovascular: [S1S2 reg], [no murmur], [positive DP pulse bilateral] Lungs: [CTA bilateral], [no rhonchi, no rales] , [no accessory muscle use] Abdominal: [soft], [ nontender to palpation], [no guarding], [no appreciable organomegaly] Ext: [no gross muscle atrophy], [no edema], [no contractures] Neuro: [no focal neuro deficits] Psych: [Alert], [oriented], [appropriate affect] - Labs CBC & Chem 7: 06/27/21 06:11 06/27/21 06:11 Labs: Abnormal Lab Results - Last 24 Hours (Table) 06/26/21 06/26/21 06/27/21 Range/Units 15:33 20:52 06:11 APTT >200.0 H* (22.0-30.0) sec Glucose 107 H (74-99) mg/dL Troponin I 0.141 H* (0.000-0.034) ng/mL 06/27/21 06/27/21 Range/Units 06:11 06:11 APTT 85.8 H (22.0-30.0) sec Glucose (74-99) mg/dL Troponin I 0.061 H* (0.000-0.034) ng/mL Assessment and Plan Assessment: Assessment: #Elevated troponins with atypical chest pain with history of CAD #Palpitations #Elevated BUN #Obesity #Essential Hypertension, dyslipidemia, GERD Plan: -Admit to medicine for close monitoring -Aspiration/fall precaution -Continue with heparin drip, and STEMI protocol -Recent cardiac catheterization completed on June 2021, stress test also completed. -2-D echo cardiogram pending -Cardiology on board pitting further recommendations -TSH ordered normal -DVT px currently on heparin drip
[2021-06-27] MEDS ORDERED: NITROGLYCERIN SL TABS 0.4 MG TAB SUBLINGUAL PRN (13:00)
[2021-06-27] MEDS ORDERED: ALPRAZolam 0.5 MG TAB PO PRN (13:00)
[2021-06-27] MEDS ORDERED: ALPRAZolam 0.25 MG TAB PO PRN (13:00)
--- NOTE | 2021-06-27 14:31 | P.PN ---
Subjective Progress Note Date: 06/27/21 HISTORY OF PRESENTING ILLNESS Patient is pleasant 75-year-old female with history of family history CAD, h ypertension, asthma, GERD, hyperlipidemia, CAD with CT of the RCA who presents secondary to chest pain. Patient follows with Dr. Haynes. She has had recent workup with a Lexiscan stress test showing anterolateral ischemia and therefore heart catheterization was performed which showed a CT of the RCA with qcia-[id number]-skite collaterals without any significant LAD disease. She therefore was attempted to be treated medically. She admits her blood pressure has been more elevated the last few weeks. Normally in the 140s to 150s however has been up in the 180s. She states she started feeling chest pressure sensation and like her heart was beating out of her chest. She denies any actual palpitations or lightheadedness. Episode lasted for 15-20 minutes and she take nitroglycerin and called EMS. By the time EMS resented she is feeling somewhat better. On presentation blood pressure noted to be very elevated 201/105. She admits she was previously on a diuretic however felt to cause some kidney damage and therefore this was discontinued. Since being in the hospital she denies any further chest pain or pressure. EKG shows normal sinus rhythm, normal axis, ST depressions in the lateral and inferior leads. Troponin 0.04, 0.14, 0.2. Heart catheterization 06/23/2021 showed 100% sure RCA BOOK CRITIC with [id number] collaterals, mild disease of the LAD and circumflex with what appears to be a distal AV groove circumflex subtotal occlusion of a small vessel. Therefore she was treated medically. 06/27/2021 Patient examined this morning at the bedside. Patient denies chest pain or pressure. She denies SOB. She remains on IV heparin. Blood pressure 142/69. Telemetry reveals sinus mechanism with a heart rate in the 70s. Echocardiogram completed revealing ejection fraction 60-65%, trace to mild mitral regurgitation, mild tricuspid regurgitation. PHYSICAL EXAMINATION Vital signs reviewed. CONSTITUTIONAL: No apparent distress. HEENT: Head is normocephalic. Pupils are equal, round. Sclerae anicteric. Mucous membranes of the mouth are moist. No JVD. No carotid bruit. CHEST EXAMINATION: Lungs are clear to auscultation. No chest wall tenderness is noted on palpation or with deep breathing. HEART EXAMINATION: Regular rate and rhythm. S1, S2 heard. No murmurs, gallops or rub. ABDOMEN: Soft, nontender. Positive bowel sounds. EXTREMITIES: 2+ peripheral pulses, no lower extremity edema and no calf tenderness. NEUROLOGIC EXAMINATION: Patient is awake, alert and oriented x3. ASSESSMENT 1. Non-STEMI may be type II mechanism from uncontrolled hypertension or possible arrhythmia that resolved by time EMS arrived however chest pain improving with nitro. 2. Coronary artery disease with 100% RCA stenosis and subtotal occluded distal AV circumflex 3. Hypertension uncontrolled, improved 4. Hyperlipidemia 5. Chronic kidney disease PLAN Continue current cardiac medications Continue IV heparin NPO at midnight Dr. Corona discussed cardiac cath with patient today who is agreeable Patient to undergo PCI of BOOK CRITIC RCA tomorrow with Dr. Corona Further recommendations pending patient course Nurse practitioner note has been reviewed by physician. Signing provider agrees with the documented findings, assessment, and plan of care. Objective - Vital Signs Vital signs: Vital Signs Temp 98.7 F 06/27/21 08:00 Pulse 70 06/27/21 12:00 Resp 16 06/27/21 12:00 BP 142/69 06/27/21 12:00 Pulse Ox 96 06/27/21 12:00 Intake & Output 06/26/21 06/27/21 06/27/21 18:59 06:59 18:59 Intake Total 182.631 140.912 Output Total 400 Balance -217.369 140.912 Intake: Intake, IV Titration 82.631 140.912 Amount Heparin Sod,Pork in 0.45% 82.631 140.912 NaCl 25,000 unit In 0.45 % NaCl 1 250ml.bag @ 18 UNITS/KG/HR 14.125 mls/hr IV .[id number] [facility] Rx#: [id number] Oral 100 Output: Urine 400 Other: Voiding Method Toilet # Voids 2 1 1 # Bowel Movements 1 - Labs CBC & Chem 7: 06/27/21 06:11 06/27/21 06:11 Labs: Abnormal Lab Results - Last 24 Hours (Table) 06/26/21 06/26/21 06/27/21 Range/Units 15:33 20:52 06:11 APTT >200.0 H* (22.0-30.0) sec Glucose 107 H (74-99) mg/dL Troponin I 0.141 H* (0.000-0.034) ng/mL 06/27/21 06/27/21 06/27/21 Range/Units 06:11 06:11 13:09 APTT 85.8 H 70.5 H (22.0-30.0) sec Glucose (74-99) mg/dL Troponin I 0.061 H* (0.000-0.034) ng/mL
[2021-06-27] MEDS: MONTELUKAST 10 MG TAB PO SCH (21:03)
[2021-06-27] MEDS ORDERED: SODIUM CHLORIDE 0.9% 1,000 ML in EMPTY BAG 1 BAG IV SCH (23:00)
[2021-06-28] MEDS: ATORVASTATIN 80 MG TAB PO ONE ×2 (04:55→05:08)
[2021-06-28] MEDS: PANTOPRAZOLE 40 MG TABLET PO SCH (04:55)
[2021-06-28] MEDS: amLODIPine 10 MG TAB PO SCH (04:55)
[2021-06-28] MEDS: METOPROLOL TARTRATE 25 MG TAB PO SCH ×2 (04:55→20:37)
[2021-06-28] MEDS: LOSARTAN 50 MG TAB PO SCH ×2 (04:56→20:37)
[2021-06-28] MEDS ORDERED: ASPIRIN 325 MG TAB PO ONE (05:00)
[2021-06-28] MEDS ORDERED: HEPARIN SODIUM,PORCINE 10,000 UNIT in SODIUM CHLORIDE 0.9% 1,000 ML IRRIGATION PRN (07:00)
[2021-06-28] MEDS ORDERED: HEPARIN SODIUM,PORCINE 2,500 UNIT in SODIUM CHLORIDE 0.9% 250 ML IRRIGATION PRN (07:00)
[2021-06-28] MEDS ORDERED: VERAPAMIL 2.5 MG/ML 2 ML AMP ONE (11:40)
[2021-06-28] MEDS ORDERED: fentaNYL (PF) 50 MCG/ML 2 ML AMP ONE (11:44)
[2021-06-28] MEDS ORDERED: HEPARIN SODIUM 1,000 UN/ML (10ML VL) ONE (11:46)
[2021-06-28] MEDS ORDERED: IV FLUID CONTINUATION 1,000 ML IV ONE (11:53)
[2021-06-28] MEDS ORDERED: fentaNYL (PF) 50 MCG/ML 2 ML AMP IV ONE (12:17)
[2021-06-28] MEDS ORDERED: MIDAZOLAM 2 MG/2 ML VIAL IV ONE (12:17)
[2021-06-28] MEDS ORDERED: LIDOCAINE 1% INJ 10MG/ML (20 ML MDV) SQ ONE (12:18)
[2021-06-28] MEDS ORDERED: VERAPAMIL SYRINGE (5 MG/10 ML) INTRAARTER ONE (12:30)
[2021-06-28] MEDS ORDERED: HEPARIN SODIUM 1,000 UN/ML (10ML VL) IV ONE (12:34)
[2021-06-28 12:50] LABS: Basophils # (A) 0.1 k/uL (0-0.2); Basophils % (A) 2 %; Eosinophils # (A) 0.4 k/uL (0-0.7); Eosinophils % (A) 4 %; HCT 42.4 % (34.0-46.0); Lymphocytes # (A) 2.2 k/uL (1.0-4.8); Lymphocytes % (A) 25 %; MCH 27.9 pg (25.0-35.0); MCHC 30.7 g/dL (31.0-37.0); MCV 90.9 fL (80.0-100.0); Mean Platelet Volume 11.1; Monocytes # (A) 0.6 k/uL (0-1.0); Monocytes % (A) 7 %; Neutrophils # (A) 5.2 k/uL (1.3-7.7); Neutrophils % (A) 60 %; Platelet Count 292 k/uL (150-450); RBC 4.66 m/uL (3.80-5.40); RDW 13.9 % (11.5-15.5); WBC 8.7 k/uL (3.8-10.6)
[2021-06-28 12:59] LABS: Potassium 4.2 mmol/L (3.5-5.1)
[2021-06-28] MEDS ORDERED: IOPAMIDOL-370 125ML BTL INJ ONE (13:04)
[2021-06-28] MEDS ORDERED: IOPAMIDOL-370 100ML BTL INJ ONE (13:25)
[2021-06-28] MEDS ORDERED: ALBUTEROL NEBULIZED 2.5 MG/3 ML INHALATION PRN (13:35)
[2021-06-28] MEDS ORDERED: ATROPINE SULFATE 0.1 MG/ML 10ML SYRINGE IV PRN (13:36)
[2021-06-28] MEDS ORDERED: RX INFO: IV CONTRAST WAS GIVEN 1 EACH MISC MISCELLANE PRN (13:36)
[2021-06-28] MEDS ORDERED: MAG HYDROX/AL HYDROX/SIMETH 30 ML CUP PO PRN (13:36)
[2021-06-28] MEDS ORDERED: ZOLPIDEM 5 MG TAB PO PRN (13:36)
[2021-06-28 14:14] VITALS: BMI 30.6
--- NOTE | 2021-06-28 16:38 | P.PN ---
Subjective Patient undergoing cardiac catheterization today. Objective - Vital Signs Vital signs: Vital Signs Temp 98.3 F 06/28/21 15:21 Pulse 66 06/28/21 16:21 Resp 16 06/28/21 16:21 BP 127/68 06/28/21 16:21 Pulse Ox 95 06/28/21 16:21 Intake & Output 06/27/21 06/28/21 06/28/21 18:59 06:59 18:59 Intake Total 163.145 75 Output Total 350 Balance 163.145 -275 Weight 78.471 kg Intake: IV 75 Intake, IV Titration 163.145 Amount Heparin Sod,Pork in 0.45% 163.145 NaCl 25,000 unit In 0.45 % NaCl 1 250ml.bag @ 18 UNITS/KG/HR 14.125 mls/hr IV .[id number] [facility] Rx#: [id number] Output: Urine 350 Other: Voiding Method Toilet # Voids 1 1 # Bowel Movements 1 1 - Exam General: [non toxic], [no distress], [appears at stated age] Derm: [warm], [dry] Head: [atraumatic], [normocephalic], [symmetric] Eyes: [EOMI], [no lid lag], [anicteric sclera] Mouth: [no lip lesion], [mucus membranes moist] Cardiovascular: [S1S2 reg], [no murmur], [positive DP pulse bilateral] Lungs: [CTA bilateral], [no rhonchi, no rales] , [no accessory muscle use] Abdominal: [soft], [ nontender to palpation], [no guarding], [no appreciable organomegaly] Ext: [no gross muscle atrophy], [no edema], [no contractures] Neuro: [no focal neuro deficits] Psych: [Alert], [oriented], [appropriate affect] - Labs CBC & Chem 7: 06/28/21 09:49 06/28/21 09:49 Labs: Abnormal Lab Results - Last 24 Hours (Table) 06/27/21 06/28/21 06/28/21 Range/Units 20:20 08:57 09:49 MCHC (31.0-37.0) g/dL APTT 60.9 H 50.1 H (22.0-30.0) sec Chloride (98-107) mmol/L Glucose (74-99) mg/dL Stool Occult Blood Positive H (Negative) 06/28/21 06/28/21 Range/Units 09:49 09:49 MCHC 30.7 L (31.0-37.0) g/dL APTT (22.0-30.0) sec Chloride 109 H (98-107) mmol/L Glucose 107 H (74-99) mg/dL Stool Occult Blood (Negative) Assessment and Plan Assessment: Assessment: #Elevated troponins with atypical chest pain with history of CAD #Palpitations #Elevated BUN #Obesity #Essential Hypertension, dyslipidemia, GERD Plan: -Admit to medicine for close monitoring -Aspiration/fall precaution -Continue with heparin drip -Recent cardiac catheterization completed on June 2021, stress test also completed. -Cardia catheterization today -Cardiology on board pitting further recommendations -TSH ordered normal -DVT px currently on heparin drip
[2021-06-28] MEDS: MONTELUKAST 10 MG TAB PO SCH (20:37)
[2021-06-28] MEDS: HEPARIN SOD,PORK IN 0.45% NACL 25,000 UNIT in 0.45% NACL 1 250ML.BAG IV SCH (20:42)
[2021-06-28 23:09] VITALS: RESP 18
--- NOTE | 2021-06-29 00:26 | P.CARDCATH ---
Description of Procedure: PROCEDURES PERFORMED: Bilateral coronary angiography, attempted PCI PRIMARY CARE COORDINATOR RCA, 8Fr Angioseal INDICATION: NSTEMI HISTORY: Patient is a pleasant 75 year old female with history of CAD with PRIMARY CARE COORDINATOR of RCA. She recently had diagnostic heart cath 06/23 with PRIMARY CARE COORDINATOR and questionable distal circumflex disease. She presented with acute chest pain while at rest with mildly elevated troponins. She was noted to be hypertensive. Therefore recommendation was for PCI of PRIMARY CARE COORDINATOR RCA. CONSENT:I have discussed the risks, benefits and alternative therapies for the above-mentioned procedure and for both sedation/analgesia as well as necessary blood product administration, if indicated, as they pertain to this patient. The patient has indicated understanding and acceptance of the risks and procedures discussed. PROCEDURE: After the risks, benefits and alternatives of the above mentioned procedure explained in detail with the patient, informed consent was obtained. Patient was taken to the catheterization lab and prepped and draped in usual fashion. Lidocaine was given to anesthetize the right femoral and right radial arteries. A 6Fr sheath was placed in the right radial artery using modified Seldinger technique and an 8Fr sheath was placed in the right femoral artery using modified Seldinger technique. A 5Fr FL 3.5 was used to engage the left main and used for dual injection and retrograde injections. The RCA was noted to be small however an 8Fr AL 0.75 guide was used to engage the RCA without deep engagement and without any dampening for improved backup support. Dual angiography showed a short PRIMARY CARE COORDINATOR segment however also noted to give off an acute marginal branch and a small PDA and appeared to be more of a left dominant syst em. There was better injection of the left system with distal circumflex appearing to fill a left PDA without any significant distal circumflex disease. Given symptoms and presentation attempt at PCI was still recommended. Therefore heparin was given for ACT greater than 250. A 0.014 whisper wire in a supercross 120 angle microcatheter was used and able to be advanced to the distal cap however not able to get intimal. This was exchanged for a Fielder XT in a Corsair microcatheter and then a Mass Spectroscopist 200 wire. With the P2 the wire appeared to be intimal with somewhat limited retrograde angiogram due to mainly right to right collaterals. Therefore the microcatheter was advanced however small injection of contrast showed this was not subintimal. Further wiring attempts were unsuccessful and therefore the decision was made to abort further attempts. A right femoral angiogram showed adequate anatomy for closure and therefore a 8 Fr Angioseal was placed with hemostasis achieved. The right radial sheath was removed and a TR band was placed with hemostasis achieved. The patient tolerated the procedure well. Patient was transported back to the post catheterization holding area in stable condition. Conscious Sedation: Patient was monitored under the direct supervision of vision of myself for conscious sedation using Versed and fentanyl for a total duration of 69 minutes FINAL IMPRESSION: 1. CAD with PRIMARY CARE COORDINATOR of RCA. 2. Unsuccessful attempted PRIMARY CARE COORDINATOR PCI RCA. 3. On clearer angiograms left circumflex appears to give left PDA with no distal circumflex disease and RCA gives off acute marginal and small PDA. PLAN: 1. Aggressive risk factor modification per most recent ACC/AHA guidelines. 2. May consider further attempts at PCI of PRIMARY CARE COORDINATOR however does not have good left to right collaterals and RCA appears to be small caliber with left system being the dominant system.
[2021-06-29] MEDS: PANTOPRAZOLE 40 MG TABLET PO SCH (07:50)
[2021-06-29] MEDS: LOSARTAN 50 MG TAB PO SCH (07:51)
[2021-06-29] MEDS: METOPROLOL TARTRATE 25 MG TAB PO SCH (07:51)
[2021-06-29] MEDS: amLODIPine 10 MG TAB PO SCH (07:51)
[2021-06-29 08:17] LABS: Basophils # (A) 0.1 k/uL (0-0.2); Basophils % (A) 1 %; Eosinophils # (A) 0.4 k/uL (0-0.7); Eosinophils % (A) 5 %; HCT 36.4 % (34.0-46.0); HGB 11.8 gm/dL (11.4-16.0); Lymphocytes # (A) 1.7 k/uL (1.0-4.8); Lymphocytes % (A) 21 %; MCH 29.4 pg (25.0-35.0); MCHC 32.4 g/dL (31.0-37.0); MCV 90.7 fL (80.0-100.0); Mean Platelet Volume 9.9; Monocytes # (A) 0.6 k/uL (0-1.0); Monocytes % (A) 8 %; Neutrophils # (A) 5.2 k/uL (1.3-7.7); Neutrophils % (A) 65 %; Platelet Count 261 k/uL (150-450); RBC 4.01 m/uL (3.80-5.40); RDW 14.1 % (11.5-15.5)
[2021-06-29 08:40] LABS: Calcium 8.7 mg/dL (8.4-10.2); Potassium 4.3 mmol/L (3.5-5.1)
[2021-06-29] MEDS ORDERED: CLOPIDOGREL 75 MG TAB PO SCH (09:00)
[2021-06-29] MEDS ORDERED: ATORVASTATIN 40 MG TAB PO SCH (09:00)
[2021-06-29] MEDS ORDERED: ISOSORBIDE MONONITRATE ER 30 MG TAB.ER.24H PO SCH (09:00)
[2021-06-29] MEDS ORDERED: ASPIRIN 81 MG PO SCH ×2 (09:00)
--- NOTE | 2021-06-29 10:33 | P.PN ---
Subjective Progress Note Date: 06/29/21 HISTORY OF PRESENTING ILLNESS Patient is pleasant 75-year-old female with history of family history CAD, h ypertension, asthma, GERD, hyperlipidemia, CAD with CT of the RCA who presents secondary to chest pain. Patient follows with Dr. Haynes. She has had recent workup with a Lexiscan stress test showing anterolateral ischemia and therefore heart catheterization was performed which showed a CT of the RCA with [id number] collaterals without any significant LAD disease. She therefore was attempted to be treated medically. She admits her blood pressure has been more elevated the last few weeks. Normally in the 140s to 150s however has been up in the 180s. She states she started feeling chest pressure sensation and like her heart was beating out of her chest. She denies any actual palpitations or lightheadedness. Episode lasted for 15-20 minutes and she take nitroglycerin and called EMS. By the time EMS resented she is feeling somewhat better. On presentation blood pressure noted to be very elevated 201/105. She admits she was previously on a diuretic however felt to cause some kidney damage and therefore this was discontinued. Since being in the hospital she denies any further chest pain or pressure. EKG shows normal sinus rhythm, normal axis, ST depressions in the lateral and inferior leads. Troponin 0.04, 0.14, 0.2. Heart catheterization 06/23/2021 showed 100% sure RCA ASSISTANT COMMUNITY MANAGER with [id number] collaterals, mild disease of the LAD and circumflex with what appears to be a distal AV groove circumflex subtotal occlusion of a small vessel. Therefore she was treated medically. 06/27/2021 Patient examined this morning at the bedside. Patient denies chest pain or pressure. She denies SOB. She remains on IV heparin. Blood pressure 142/69. Telemetry reveals sinus mechanism with a heart rate in the 70s. Echocardiogram completed revealing ejection fraction 60-65%, trace to mild mitral regurgitation, mild tricuspid regurgitation. 06/29/2021 Patient is s/p cardiac cath with Dr. Corona yesterday with unsuccessful attempted PCI of ASSISTANT COMMUNITY MANAGER RCA. Patient examined this morning. Patient denies chest pain or pressure. Denies SOB. Vital signs are stable. PHYSICAL EXAMINATION Vital signs reviewed. CONSTITUTIONAL: No apparent distress. HEENT: Head is normocephalic. Pupils are equal, round. Sclerae anicteric. Mucous membranes of the mouth are moist. No JVD. No carotid bruit. CHEST EXAMINATION: Lungs are clear to auscultation. No chest wall tenderness is noted on palpation or with deep breathing. HEART EXAMINATION: Regular rate and rhythm. S1, S2 heard. No murmurs, gallops or rub. ABDOMEN: Soft, nontender. Positive bowel sounds. EXTREMITIES: 2+ peripheral pulses, no lower extremity edema and no calf tenderness. NEUROLOGIC EXAMINATION: Patient is awake, alert and oriented x3. ASSESSMENT 1. Non-STEMI may be type II mechanism from uncontrolled hypertension or poss ible arrhythmia that resolved by time EMS arrived however chest pain improving with nitro. 2. Coronary artery disease with 100% RCA stenosis and subtotal occluded distal AV circumflex 3. Hypertension uncontrolled, improved 4. Hyperlipidemia 5. Chronic kidney disease 6. Status post unsuccessful PCI of ASSISTANT COMMUNITY MANAGER RCA PLAN Continue current cardiac medications ASSISTANT COMMUNITY MANAGER RCA is somewhat smaller and appears nondominant. May consider medical therapy of RCA. Patient to receive 30 day event monitor today Patient may be discharged home this afternoon on current medications from a cardiac standpoint and follow up with Dr. Haynes Nurse practitioner note has been reviewed by physician. Signing provider agrees with the documented findings, assessment, and plan of care. Objective - Vital Signs Vital signs: Vital Signs Temp 97.4 F L 06/29/21 07:48 Pulse 76 06/29/21 07:48 Resp 18 06/29/21 04:00 BP 158/70 06/29/21 07:48 Pulse Ox 94 L 06/29/21 07:48 Intake & Output 06/28/21 06/29/21 06/29/21 18:59 06:59 18:59 Intake Total 195 Output Total 350 200 Balance -155 -200 Weight 78.471 kg Intake: IV 75 Oral 120 Output: Urine 350 200 Other: Voiding Method Toilet # Voids 1 # Bowel Movements 1 - Labs CBC & Chem 7: 06/29/21 06:28 06/29/21 06:28 Labs: Abnormal Lab Results - Last 24 Hours (Table) 06/28/21 06/28/21 06/28/21 Range/Units 08:57 09:49 09:49 MCHC 30.7 L (31.0-37.0) g/dL Chloride 109 H (98-107) mmol/L Carbon Dioxide (22-30) mmol/L BUN (7-17) mg/dL Glucose 107 H (74-99) mg/dL Stool Occult Blood Positive H (Negative) 06/29/21 Range/Units 06:28 MCHC (31.0-37.0) g/dL Chloride 112 H (98-107) mmol/L Carbon Dioxide 20 L (22-30) mmol/L BUN 20 H (7-17) mg/dL Glucose (74-99) mg/dL Stool Occult Blood (Negative)
[2021-06-29 12:00] VITALS: BP 123/62; PULSE 73; TEMP 98.5
--- NOTE | 2021-06-29 13:45 | CA ---
Transthoracic Echo Report Name: Amanda Meade Age: 75 Gender: F : 1945 Exam Date: 06/29/2021 07:47 Exam Location: [facility] Ht (in): 63 Wt (lb): 173 Ordering Physician: Rian Corona DO ([email or web address]) Attending/Referring Phys: Shear Grinder Operator Nati Davis RDCS Procedure CPT: Indications: LV function, effusion Cardiac Hx: Small pericardial effusion, limited study Technical Quality: Fair Contrast 1: Total Dose (mL): Contrast 2: Total Dose (mL): MEASUREMENTS (Male / Female) Normal Values FINDINGS Left Ventricle Left ventricular ejection fraction is estimated at 60-65 %. Right Ventricle Right Atrium Left Atrium Mitral Valve Aortic Valve Tricuspid Valve Pulmonic Valve Pericardium No pericardial effusion Aorta CONCLUSIONS Normal left ventricular dimension and systolic function No evidence of pericardial effusion Previewed by: Dr. Martell Sandhu MD (Electronically Signed) Final Date: 29 Jun 2021 13:44
--- NOTE | 2021-06-29 14:23 | P.DS ---
Providers Date of admission: 06/27/21 12:03 Attending physician: Meaghan Nichols MD Consults: 06/26/21 02:48 Consult Physician Routine Consulting Provider: Martell Sandhu Consult Reason/Comments: chest pain. Elevated troponin Do you want consulting provider notified?: Yes 06/28/21 13:36 Consult Physician Routine Consulting Provider: [facility] Consult Reason/Comments: Post Interventional patient Do you want consulting provider notified?: Already Contacted Primary care physician: Andrés Corea MD Hospital Course: 75 year old female with CAD, hypertension patient presented by EMS when she experienced palpitations and chest discomfort that happened suddenly while she was resting and getting ready to go to sleep. she recently had a left heart cath that showed total occlusion of coronary arteries no stents were deployed and recommendations were to optimize medical treatment . she denies any history of afib or heart racing. she drinks one coke a day for a caffeine source. no recent changes inher meds, and claims she is compliant with her meds currently she feels comfortable no ongoing chest discomfort or palpitations at this time blood work showed slightly elevated trops otherwise unremarkable Patient was evaluated by cardiology and underwent cardiac catheterization on 06/28/2021. Results of the cardiac catheter below. FINAL IMPRESSION: 1. CAD with ELECTRICAL MAINTENANCE MECHANIC of RCA. 2. Unsuccessful attempted ELECTRICAL MAINTENANCE MECHANIC PCI RCA. 3. On clearer angiograms left circumflex appears to give left PDA with no distal circumflex disease and RCA gives off acute marginal and small PDA. PLAN: 1. Aggressive risk factor modification per most recent ACC/AHA guidelines. 2. May consider further attempts at PCI of ELECTRICAL MAINTENANCE MECHANIC however does not have good left to right collaterals and RCA appears to be small caliber with left system being the dominant system. Patient is okay be discharged from profiling machine set up operator tool perspective at this time to continue with medical management. Patient also needs an event monitor spoke with RN states that the hospital does not have any and she will need to drop by the profiling machine set up operator tool office and to [place]. Patient is agreeable and okay to be discharged from CONSULTING TEAMS. VITAL SIGNS ARE STABLE PATIENT DENIES ANY CHEST PAIN, SHORTNESS OF BREATH OR PALPITATIONS. Plan - Discharge Summary Discharge Rx Participant: Yes New Discharge Prescriptions: New amLODIPine [Norvasc] 10 mg PO DAILY 30 Days #30 tab Clopidogrel [Plavix] 75 mg PO DAILY 30 Days #30 tab Continue Nitroglycerin Sl Tabs [Nitrostat] 0.4 mg SUBLINGUAL Q5M PRN #100 tab PRN Reason: Chest Pain Montelukast [Singulair] 10 mg PO HS Atorvastatin [Lipitor] 40 mg PO DAILY Aspirin 81 mg PO DAILY Metoprolol Tartrate [Lopressor] 75 mg PO BID Losartan Potassium [Cozaar] 50 mg PO BID Isosorbide Mononitrate ER [Imdur] 30 mg PO DAILY #90 tab Pantoprazole [Protonix] 40 mg PO DAILY Albuterol Inhaler [Ventolin Hfa Inhaler] 2 puff INHALATION RT-QID PRN PRN Reason: Shortness Of Breath Discharge Medication List Isosorbide Mononitrate ER [Imdur] 30 mg PO DAILY #90 tab 06/20/21 [Rx] Nitroglycerin Sl Tabs [Nitrostat] 0.4 mg SUBLINGUAL Q5M PRN #100 tab 06/20/21 [Rx] Albuterol Inhaler [Ventolin Hfa Inhaler] 2 puff INHALATION RT-QID PRN 06/22/21 [History] Aspirin 81 mg PO DAILY 06/22/21 [History] Atorvastatin [Lipitor] 40 mg PO DAILY 06/22/21 [History] Losartan Potassium [Cozaar] 50 mg PO BID 06/22/21 [History] Metoprolol Tartrate [Lopressor] 75 mg PO BID 06/22/21 [History] Montelukast [Singulair] 10 mg PO HS 06/22/21 [History] Pantoprazole [Protonix] 40 mg PO DAILY 06/22/21 [History] Clopidogrel [Plavix] 75 mg PO DAILY 30 Days #30 tab 06/29/21 [Rx] amLODIPine [Norvasc] 10 mg PO DAILY 30 Days #30 tab 06/29/21 [Rx] Follow up Appointment(s)/Referral(s): Andrés Corea MD [Primary Care Provider] - 1-2 days Feng Haynes MD [STAFF PHYSICIAN] - 1 Week Patient Instructions/Handouts: *Surgery [facility] - After Heart Catheterization - [facility] Instructions Activity/Diet/Wound Care/Special Instructions: please obtain event monitor from hospital or cardiology office as instructed by the profiling machine set up operator tool. Discharge Disposition: HOME SELF-CARE
== END 2021-06-29 15:49 | disposition home or self-care (01) | DRG 282 ==
LOC: EC 22:28 → 3SCARD 06-26 02:51 → OBSVTOIN 06-27 12:03
PROVIDERS: ADMIT Internal Medicine; ATTEND Internal Medicine
PROC: B2111ZZ Fluoroscopy of Multiple Coronary Arteries using Low Osmolar Contrast (ICD-10-PCS; principal; 2021-06-28 07:30)
DX: I25.10 Atherosclerotic heart disease of native coronary artery without angina pectoris (principal); I21.A1 Myocardial infarction type 2; I25.119 Atherosclerotic heart disease of native coronary artery with unspecified angina pectoris; E66.9 Obesity, unspecified; R00.2 Palpitations; I25.82 Chronic total occlusion of coronary artery; I08.1 Rheumatic disorders of both mitral and tricuspid valves; E78.5 Hyperlipidemia, unspecified; R07.89 Other chest pain; R00.0 Tachycardia, unspecified; F41.9 Anxiety disorder, unspecified; I12.9 Hypertensive chronic kidney disease with stage 1 through stage 4 chronic kidney disease, or unspecified chronic kidney disease; I25.2 Old myocardial infarction; J45.909 Unspecified asthma, uncomplicated; K21.9 Gastro-esophageal reflux disease without esophagitis; N18.9 Chronic kidney disease, unspecified; Z79.02 Long term (current) use of antithrombotics/antiplatelets; Z79.82 Long term (current) use of aspirin; Z79.899 Other long term (current) drug therapy; Z82.49 Family history of ischemic heart disease and other diseases of the circulatory system; Z82.5 Family history of asthma and other chronic lower respiratory diseases; Z86.73 Personal history of transient ischemic attack (TIA), and cerebral infarction without residual deficits; Z68.30 Body mass index [BMI] 30.0-30.9, adult
CPT/HCPCS: 36415; 71045; 80048; 80053; 80061; 82272; 83735; 84443; 84484; 85025; 85610; 85730; 93005; 93306; 93308; 93454; 99285

== ENCOUNTER → 2022-11-13 | Outpatient (CLI) | payer MEDICARE ==
--- NOTE | 2022-11-14 20:55 | MM ---
Reason for Exam: Screening (asymptomatic). Last mammogram was performed 1 year(s) and 6 month(s) ago. Patient History: Menarche at age 13. Patient has no children. Postmenopausal. Risk Values: Lauren 5 year model risk: 2.0%. NCI Lifetime model risk: 4.0%. Prior Study Comparison: 12/06/2020 Bilateral Screening Mammogram, [facility]. 06/08/2021 Bilateral Diagnostic Mammogram, [facility]. Tissue Density: There are scattered fibroglandular densities. Findings: Analyzed By CAD. Chronic nodularity on the left. Benign bilateral vascular calcifications are redemonstrated. There is no suspicious group of microcalcifications or new suspicious mass in either breast. Overall Assessment: Benign, BI-RAD 2 Management: Screening Mammogram of both breasts in 1 year. . Patient should continue monthly self-breast exams. A clinical breast exam by your physician is recommended on an annual basis. This exam should not preclude additional follow-up of suspicious palpable abnormalities. Note on Lauren scores and lifetime risk: 1. A Lauren score greater than 3% is considered moderate risk. If this is the case, consider specialist referral to assess eligibility for a risk reducing agent. 2. If overall lifetime risk for the development of breast cancer is 20% or higher, the patient may qualify for future screening with alternating mammogram and breast MRI. Electronically signed and approved by: Diego Cummings M.D. Radiologist
== END | disposition home or self-care (01) ==
LOC: RADMAMWWP 14:15
PROVIDERS: ATTEND Internal Medicine
DX: Z12.31 Encounter for screening mammogram for malignant neoplasm of breast (principal); Z78.0 Asymptomatic menopausal state
CPT/HCPCS: 77063; 77067

== ENCOUNTER → 2023-05-10 | Outpatient (CLI) | payer MEDICARE ==
--- NOTE | 2023-05-10 20:44 | US ---
EXAMINATION TYPE: US kidneys/renal and bladder DATE OF EXAM: 05/10/2023 COMPARISON: NONE CLINICAL INDICATION: Female, 77 years old with history of N18.31 CHRONIC KIDNEY DISEASE, STAGE 3A; EXAM MEASUREMENTS: Right Kidney: 7.5 x 4.0 x 4.6 cm Left Kidney: 8.6 x 4.3 x 4.4 cm Right Kidney: small in size Left Kidney: small in size Bladder: not fully distended Bilateral Jets seen: no IMPRESSION: 1. Kidneys appear somewhat small in size but otherwise unremarkable renal ultrasound
== END | disposition home or self-care (01) ==
LOC: RADUSWWP 12:58
PROVIDERS: ATTEND Internal Medicine
DX: N18.31 Chronic kidney disease, stage 3a (principal)
CPT/HCPCS: 76770

== ENCOUNTER → 2023-06-26 | Outpatient (CLI) | payer MEDICARE ==
[2023-06-26 20:25] LABS: ALT 12 U/L (8-44); AST 20 U/L (13-35); LDL Cholesterol,Calculated 77.2 mg/dL (0.0-131.0)
== END | disposition home or self-care (01) ==
LOC: LABWHC1 09:07
PROVIDERS: ATTEND Internal Medicine Cardiovascular Disease
DX: E78.2 Mixed hyperlipidemia (principal)
CPT/HCPCS: 36415; 80061; 84450; 84460

== ENCOUNTER → 2024-01-16 | Outpatient (CLI) | payer MEDICARE ==
--- NOTE | 2024-01-16 15:23 | MM ---
Reason for Exam: Screening (asymptomatic). Last mammogram was performed 1 year(s) and 2 month(s) ago. Patient History: Menarche at age 13. Patient has no children. Postmenopausal. Risk Values: Lauren 5 year model risk: 1.9%. NCI Lifetime model risk: 3.7%. Prior Study Comparison: 12/06/2020 Bilateral Screening Mammogram, [facility]. 06/08/2021 Bilateral Diagnostic Mammogram, [facility]. 11/13/2022 Bilateral MG 3D screening mammo w/cad, [facility]. Tissue Density: There are scattered areas of fibroglandular density. Findings: Analyzed By CAD. Right breast: There is no suspicious group of microcalcifications or new suspicious mass. Left breast: There is no suspicious group of microcalcifications or new suspicious mass. Benign-appearing calcifications left breast. Overall Assessment: Benign, BI-RAD 2 Management: Screening Mammogram of both breasts in [address] [facility] will attempt to contact patient to return for supplemental views and ultrasound if indicated. Patient should continue monthly self-breast exams. A clinical breast exam by your physician is recommended on an annual basis. This exam should not preclude additional follow-up of suspicious palpable abnormalities. Note on Lauren scores and lifetime risk: 1. A Lauren score greater than 3% is considered moderate risk. If this is the case, consider specialist referral to assess eligibility for a risk reducing agent. 2. If overall lifetime risk for the development of breast cancer is 20% or higher, the patient may qualify for future screening with alternating mammogram and breast MRI. [facility], , 01/16/2024 3:20 PM. Electronically signed and approved by: Bentley Isabel DO
== END | disposition home or self-care (01) ==
LOC: RADMAMWWP 13:09
PROVIDERS: ATTEND Internal Medicine
DX: Z12.31 Encounter for screening mammogram for malignant neoplasm of breast (principal); Z78.0 Asymptomatic menopausal state; R92.323 Mammographic fibroglandular density, bilateral breasts
CPT/HCPCS: 77063; 77067

== ENCOUNTER → 2024-06-13 | Outpatient (CLI) | payer MEDICARE ==
[2024-06-13 15:39] LABS: Chol/HDL Ratio 2.56 Ratio
[2024-06-13 15:40] LABS: ALT 11 U/L (8-44); AST 19 U/L (13-35); LDL Cholesterol,Calculated 67.2 mg/dL (0.0-131.0)
== END | disposition home or self-care (01) ==
LOC: LABWHC1 09:12
PROVIDERS: ATTEND Internal Medicine Cardiovascular Disease
DX: E78.2 Mixed hyperlipidemia (principal)
CPT/HCPCS: 36415; 80061; 84450; 84460